=== PATIENT | female | born 1995 | race African-American/Black ===

== ENCOUNTER 2018-08-24 05:02 | Inpatient (IN) ==
[2018-08-24] MEDS ORDERED: ONDANSETRON 4 MG/2 ML VIAL IV PRN (05:19)
[2018-08-24] MEDS ORDERED: LACTATED RINGERS 250 ML IV ONE (05:19)
[2018-08-24] MEDS ORDERED: MEPERIDINE 50 MG/1 ML VIAL IM PRN (05:19)
[2018-08-24] MEDS ORDERED: BUTORPHANOL 2 MG/ML VIAL IV PRN (05:19)
[2018-08-24] MEDS ORDERED: TERBUTALINE 1 MG/1 ML VIAL SUBCUT PRN (05:19)
[2018-08-24] MEDS: LACTATED RINGERS 1,000 ML IV SCH ×2 (05:30→12:36)
[2018-08-24 05:41] LABS: Basophils % 0.4 % (0.0-0.8); Eosinophils # 0.1 10*3/uL (0.0-0.87); Hematocrit 36.8 VOL% (35.7-47.0); Hemoglobin 11.8 GM/DL (12.0-16.0); Immature Granulocytes % 1.1 %; Immature Granulocytes Absolute 0.09 #; Lymphocytes # 1.8 10*3/uL (1.4-4.0); Lymphocytes % 21.8 % (21.3-54.2); Mean Corpuscular HGB Conc 32.1 GM/DL (32-36); Mean Corpuscular Hemoglobin 30 PG (27-34); Mean Corpuscular Volume 94.4 FL (87-102); Mean Platelet Volume 10.2 FL (9.6-12.0); Monocytes # 0.8 10*3/uL (0.11-0.8); Monocytes % 9.8 % (1.7-12.7); Neutrophils # 5.5 10*3/uL (1.4-7.4); Neutrophils % 65.9 % (38.7-73.9); Platelet Count 266 T/CUMM (130-400); Red Cell Distribution Width 15.2 % (9.3-17.3); White Blood Count 8.3 T/CUMM (4-12)
[2018-08-24 05:58] LABS: Albumin 2.6 G/DL (3.4-5.0); Bilirubin,Total 0.7 MG/DL (0.2-1.0); Calcium 9.4 MG/DL (8.5-10.1); Potassium 3.9 MMOL/L (3.5-5.1); Total Protein 7.8 G/DL (6.4-8.3)
[2018-08-24] MEDS: OXYTOCIN/LR 20 UNIT/1,000 ML BAG IV SCH ×2 (06:20→21:13)
[2018-08-24] MEDS ORDERED: MEPERIDINE 50 MG/1 ML VIAL IV PRN (19:35)
[2018-08-24] MEDS ORDERED: LIDOCAINE 1% 50 ML VIAL ONE (21:19)
[2018-08-24] MEDS ORDERED: miSOPROStol 200 MCG TABLET ONE (21:20)
[2018-08-24] MEDS ORDERED: CARBOPROST TROMETHAMINE 250 MCG/ML AMP IM ONE ×2 (21:20→21:50)
[2018-08-24] MEDS ORDERED: METHYLERGONOVINE 0.2 MG/1 ML AMP ONE (21:20)
[2018-08-24] MEDS ORDERED: miSOPROStol 200 MCG TABLET PO SCH (21:40)
[2018-08-24] MEDS ORDERED: BENZOCAINE 20%/MENTHOL 0.5% SPRAY 56 GM CAN TOP PRN (22:04)
[2018-08-24] MEDS ORDERED: MEASLES/MUMPS/RUBELLA VACCINE 0.5 ML VIAL SUBCUT ONE (22:04)
[2018-08-24] MEDS ORDERED: oxyCODONE/ACETAMINOPHEN 5-325 MG TABLET PO PRN ×2 (22:04)
[2018-08-24] MEDS ORDERED: WITCH HAZEL PADS 100/JAR TOP PRN (22:04)
[2018-08-24] MEDS ORDERED: DIPH/TET/ACEL PERT BOOSTER VACCINE 0.5 ML VIAL IM ONE (22:04)
[2018-08-24] MEDS ORDERED: IBUPROFEN 800 MG TABLET PO PRN (22:04)
[2018-08-24] MEDS ORDERED: OXYTOCIN/LR 20 UNIT/1,000 ML BAG IV ONE (22:04)
[2018-08-24] MEDS ORDERED: RHO(D) IMMUNE GLOBULIN 300 MCG SYRINGE IM ONE (22:04)
[2018-08-24] MEDS ORDERED: HYDROCORTISONE 2.5% RECTAL CREAM 30 GM TUBE TOP PRN (22:04)
[2018-08-24] MEDS ORDERED: BISACODYL 10 MG SUPP RECTAL PRN (22:04)
[2018-08-24] MEDS ORDERED: ACETAMINOPHEN 325 MG TABLET PO PRN (22:04)
[2018-08-24] MEDS ORDERED: LANOLIN 50% CREAM 0.3 OZ TUBE TOP PRN (22:04)
[2018-08-24] MEDS ORDERED: DIPHENOXYLATE/ATROPINE 2.5-0.025 MG TABLET PO ONE (23:00)
[2018-08-24] MEDS ORDERED: miSOPROStol 200 MCG TABLET RECTAL ONE (23:30)
[2018-08-25 05:10] LABS: Basophils % 0.1 % (0.0-0.8); Hemoglobin 10.9 GM/DL (12.0-16.0); Immature Granulocytes % 0.6 %; Lymphocytes # 1.3 10*3/uL (1.4-4.0); Lymphocytes % 8.3 % (21.3-54.2); Mean Corpuscular HGB Conc 32.1 GM/DL (32-36); Mean Corpuscular Hemoglobin 30 PG (27-34); Mean Corpuscular Volume 93.9 FL (87-102); Mean Platelet Volume 10.7 FL (9.6-12.0); Monocytes % 6.5 % (1.7-12.7); Neutrophils # 13.2 10*3/uL (1.4-7.4); Neutrophils % 84.5 % (38.7-73.9); Platelet Count 257 T/CUMM (130-400); Red Blood Count 3.62 MC/CUMM (3.8-5.5); White Blood Count 15.6 T/CUMM (4-12)
[2018-08-25 05:35] LABS: Band Neutrophils 1 % (0-10); Hypochromasia 1+; Lymphocytes 5 % (20-55); Platelet Estimate Adequate; Segmented Neutrophils 89 % (50-85); Total Cells Counted 100
[2018-08-25] MEDS: FERROUS SULFATE 325 MG TABLET PO SCH ×2 (09:34→22:38)
[2018-08-25] MEDS: MULTIVITAMIN (PRENATAL) TABLET PO SCH (09:34)
[2018-08-25] MEDS: DOCUSATE SODIUM 100 MG CAPSULE PO SCH ×2 (09:35→22:38)
[2018-08-26 07:55] VITALS: BP 105/61
[2018-08-26] MEDS: MULTIVITAMIN (PRENATAL) TABLET PO SCH (10:56)
[2018-08-26] MEDS: FERROUS SULFATE 325 MG TABLET PO SCH ×2 (10:56→10:57)
[2018-08-26] MEDS: DOCUSATE SODIUM 100 MG CAPSULE PO SCH (10:56)
== END 2018-08-26 12:30 | disposition home or self-care (01) | DRG 806 ==
LOC: N.LDOUT 05:02 → N.LD 05:46 → N.OB 08-25 00:26
PROVIDERS: ADMIT Obstetrics & Gynecology; ATTEND Obstetrics & Gynecology